=== PATIENT | female | born 1940 | race African-American/Black ===

== ENCOUNTER 2022-04-16 16:00 | Inpatient (IN) | payer MEDICARE, OTHER ==
[~2022-04-16] VITALS: Ht 167.6 cm; Wt 63.5 kg
[2022-04-16] MEDS ORDERED: ONDANSETRON HCL 4MG/2ML INJ IV STA (16:37)
[2022-04-16] MEDS ORDERED: MORPHINE SULFATE 4 MG/ML CPJ (NOT FOR IM USE) IV STA (16:37)
[2022-04-16] MEDS ORDERED: SODIUM CHLORIDE 0.9% 1,000 ML IV ONE (16:45)
[2022-04-16 17:19] LABS: BASOPHILS % 0.6 % (0.0-2.0); EOSINOPHILS % 0.1 % (0.0-5.0); HEMATOCRIT. 43.5 % (36.0-48.0); HEMOGLOBIN. 15.3 g/dL (12.0-16.0); MEAN CORPUSCULAR HEMOGLOBIN 36.5 pg (28.0-32.0); MEAN CORPUSCULAR VOLUME 103.7 fL (81.0-99.0); MEAN PLATELET VOLUME 8.5 fl (7.4-10.4); NEUTROPHILS % 80.3 % (40.0-76.0); PLATELET 160 x1000/uL (130-400); RED BLOOD CELL COUNT 4.19 mill/uL (4.2-5.4)
[2022-04-16 17:27] LABS: CHLORIDE 99 mEq/L (98-107)
[2022-04-16] MEDS ORDERED: CLONIDINE 0.2MG TABLET PO ONE (18:00)
[2022-04-16] MEDS ORDERED: AZITHROMYCIN 500MG/250ML 250 ML IV ONE (18:30)
[2022-04-16] MEDS ORDERED: CEFTRIAXONE 1 G PREMIX 50 ML IV ONE (18:30)
[2022-04-16] MEDS ORDERED: POTASSIUM CHLORIDE 20MEQ TABLET SR PO ONE (18:30)
[2022-04-16] MEDS ORDERED: SODIUM CHLORIDE 0.9% 1000ML BAG (SEPSIS BOLUS) IV ONE (18:30)
[2022-04-16 20:07] LABS: CLARITY URINE CLOUDY (CLEAR); COLOR URINE YELLOW (YELLOW); KETONES URINE 1+ (NEGATIVE); LEUKOCYTE ESTERASE URINE 1+ (NEGATIVE); NITRITE URINE NEGATIVE (NEGATIVE); OCCULT BLOOD URINE NEGATIVE (NEGATIVE); PROTEIN URINE TRACE (NEGATIVE)
[2022-04-16] MEDS ORDERED: SODIUM CHLORIDE 0.9% 1,000 ML IV SCH (20:15)
[2022-04-16] MEDS ORDERED: SODIUM CHLORIDE 0.9% 500 ML IV SCH (20:15)
[2022-04-16] MEDS: VANCOMYCIN 1G PREMIX 200 ML IV NR (21:00)
[2022-04-17] MEDS: VANCOMYCIN 1G PREMIX 200 ML IV NR ×2 (02:09→02:11)
[2022-04-17] MEDS ORDERED: ONDANSETRON HCL 4MG/2ML INJ IV PRN (03:00)
[2022-04-17] MEDS ORDERED: ZOLPIDEM TARTRATE 5MG TABLET PO PRN (03:00)
[2022-04-17] MEDS ORDERED: DIPHENHYDRAMINE 50MG/ML VIAL IV PRN (03:00)
[2022-04-17] MEDS ORDERED: HYDROCODONE/ACETAMINOPHEN 5/325MG TABLET PO PRN (03:00)
[2022-04-17] MEDS ORDERED: ACETAMINOPHEN 325MG TABLET PO PRN ×2 (03:00)
[2022-04-17 05:05] LABS: CHLORIDE 102 mEq/L (98-107)
[2022-04-17] MEDS: SODIUM CHLORIDE 0.9% INJ 3ML FLUSH IVF SCH ×3 (06:00→22:00)
[2022-04-17] MEDS ORDERED: NALOXONE HCL 0.4MG/ML VIAL IV PRN (10:15)
[2022-04-17 10:59] VITALS: BP 174/87
[2022-04-17 11:00] VITALS: BP 174/87
[2022-04-17] MEDS: CLONIDINE 0.1MG TABLET PO PRN ×2 (11:05→18:14)
[2022-04-17] MEDS ORDERED: INFLUENZA VACCINE 05/PF 0.5 ML SYRINGE IM ONE (12:00)
[2022-04-17 16:00] VITALS: BP 160/100
[2022-04-17] MEDS ORDERED: CEFTRIAXONE 1,000 MG in SODIUM CHLORIDE 0.9% 50 ML IV SCH (16:00)
[2022-04-17] MEDS ORDERED: POTASSIUM CHLORIDE 20MEQ TABLET SR PO NR (17:45)
[2022-04-17 18:00] VITALS: BP 160/100
[2022-04-17] MEDS: MAGNESIUM 4 G PREMIX 100 ML IV NR ×2 (18:30→21:26)
[2022-04-17 20:00] VITALS: BP 130/79
[2022-04-17] MEDS: CEFTRIAXONE 1,000 MG in DEXTROSE 5% WATER 50 ML IV SCH ×2 (20:00→21:27)
[2022-04-17] MEDS ORDERED: IOHEXOL-300 100 ML BOTTLE ONE (20:53)
[2022-04-17] MEDS: AMLODIPINE 2.5MG TABLET PO SCH ×2 (21:00→21:26)
[2022-04-17] MEDS ORDERED: LORAZEPAM 1MG TABLET PO PRN (22:15)
[2022-04-18 04:00] VITALS: BP 155/99
[2022-04-18] MEDS: SODIUM CHLORIDE 0.9% INJ 3ML FLUSH IVF SCH ×2 (06:00→14:00)
[2022-04-18 08:00] VITALS: BP 168/85
[2022-04-18] MEDS: AMLODIPINE 2.5MG TABLET PO SCH (09:02)
[2022-04-18 12:00] VITALS: BP 134/65
[2022-04-18 12:36] LABS: BASOPHILS % 0.4 % (0.0-2.0); EOSINOPHILS % 0.5 % (0.0-5.0); HEMATOCRIT. 41.2 % (36.0-48.0); HEMOGLOBIN. 14.2 g/dL (12.0-16.0); LYMPHOCYTES % 14.1 % (20.0-50.0); MEAN CORPUSCULAR HEMOGLOBIN 36.2 pg (28.0-32.0); MEAN CORPUSCULAR VOLUME 104.9 fL (81.0-99.0); MONOCYTES % 7.7 % (2.0-8.0); NEUTROPHILS % 77.3 % (40.0-76.0); PLATELET 144 x1000/uL (130-400); RED BLOOD CELL COUNT 3.93 mill/uL (4.2-5.4); RED CELL DISTRIBUTION WIDTH 13.8 % (11.6-14.6)
[2022-04-18 13:09] LABS: CHLORIDE 101 mEq/L (98-107); PHOSPHORUS 1.5 mg/dL (2.5-4.9)
[2022-04-18 13:39] LABS: VITAMIN B12 SERUM 756 pg/mL (211-911)
[2022-04-18 15:47] VITALS: BP 134/65
== END 2022-04-18 20:09 | disposition home or self-care (01) | DRG 74 ==
LOC: ER 16:00 → EDBEDREQTM 04-17 02:43 → EDBEDREQ 04-17 02:43 → MICUSO 04-17 04:00 → 7EST 04-17 10:11
PROVIDERS: ADMIT Internal Medicine; ATTEND Internal Medicine
DX: G90.8 Other disorders of autonomic nervous system (principal); S02.82XA Fracture of other specified skull and facial bones, left side, initial encounter for closed fracture; I10 Essential (primary) hypertension; E87.6 Hypokalemia; Z20.822 Contact with and (suspected) exposure to COVID-19; H40.9 Unspecified glaucoma; R91.8 Other nonspecific abnormal finding of lung field; E83.42 Hypomagnesemia; F03.90 Unspecified dementia, unspecified severity, without behavioral disturbance, psychotic disturbance, mood disturbance, and anxiety; Z90.12 Acquired absence of left breast and nipple; Z85.3 Personal history of malignant neoplasm of breast; W06.XXXA Fall from bed, initial encounter; Y92.009 Unspecified place in unspecified non-institutional (private) residence as the place of occurrence of the external cause; Y93.84 Activity, sleeping; Y99.8 Other external cause status
CPT/HCPCS: 36415; 70480; 71045; 71260; 80048; 80053; 81003; 82607; 82746; 83605; 83735; 83880; 84100; 84484; 85025; 87426; 90686; 93005; 97162; 97166; 99291; J0456; J0696; J2270; J2405; J3370; J3475; J7030; J7060; Q9967